=== PATIENT | male | born 1955 | race African-American/Black ===

== ENCOUNTER 2019-02-18 10:11 | Emergency (ER) | payer MEDICARE ==
[2019-02-18] MEDS ORDERED: methylPREDNISolone Sod Succ/PF 125 MG/2 ML VIAL ONE (10:38)
[2019-02-18] MEDS ORDERED: Albuterol Sulfate 2.5 mg/3 ml Neb ONE ×2 (10:50→10:51)
== END 2019-02-18 11:45 | disposition home or self-care (01) ==
LOC: NAV ERS 10:11
DX: J44.1 Chronic obstructive pulmonary disease with (acute) exacerbation (principal); F17.210 Nicotine dependence, cigarettes, uncomplicated; Z79.51 Long term (current) use of inhaled steroids
CPT/HCPCS: 93005; 94640; 94760; 96372; J2930; J7611; J7620

== ENCOUNTER 2020-01-01 13:56 | Emergency (ER) | payer MEDICARE ==
[2020-01-01] MEDS ORDERED: predniSONE 20 MG TAB ONE (14:24)
--- NOTE | 2020-01-01 14:49 | RAD ---
PORTABLE CHEST 1 VIEW: Date: 01/01/2020 Time: 1439 hours HISTORY: Shortness of breath. COPD. COMPARISON: 11/05/2014 and 12/21/2015. FINDINGS: A right-sided Port-A-Cath is seen with tip in the projection of the cavoatrial junction. The heart si ze is normal. Changes of COPD are again seen. No lobar consolidation, pneumothoraces, or pleural effu sions are identified. IMPRESSION: No acute process. POS: [facility]
[2020-01-01] MEDS ORDERED: Albuterol Sulfate 2.5 mg/3 ml Neb ONE (14:52)
== END 2020-01-01 15:11 | disposition home or self-care (01) ==
LOC: NAV ERS 13:56
DX: J44.1 Chronic obstructive pulmonary disease with (acute) exacerbation (principal); F17.210 Nicotine dependence, cigarettes, uncomplicated; Z79.51 Long term (current) use of inhaled steroids
CPT/HCPCS: 71046; 93005; 94640; J7512; J7611; J7620

== ENCOUNTER 2020-02-04 08:51 | Emergency (ER) | payer MEDICARE, OTHER ==
[2020-02-04] MEDS ORDERED: predniSONE 20 MG TAB ONE ×2 (09:14→09:17)
[2020-02-04] MEDS ORDERED: Ventolin HFA Inhaler 60 PUFF INHALER ONE (09:16)
--- NOTE | 2020-02-04 09:47 | RAD ---
CHEST 1 VIEW: Date: 02/04/2020 HISTORY: Shortness of breath without fever. Dyspnea. COMPARISON: 01/01/2020. FINDINGS: Stable bilateral hyperinflation. Heart size is normal. Right subclavian catheter and injection port. No confluent pneumonia, overt edema, or pleural effusion. IMPRESSION: Hyperinflation, but no acute intrathoracic disease. Stable findings. POS: [facility]
== END 2020-02-04 10:19 | disposition home or self-care (01) ==
LOC: NAV ERS 08:51
DX: J44.1 Chronic obstructive pulmonary disease with (acute) exacerbation (principal); F17.210 Nicotine dependence, cigarettes, uncomplicated; Z79.51 Long term (current) use of inhaled steroids; Z71.6 Tobacco abuse counseling
CPT/HCPCS: 71045; 99406; J7512

== ENCOUNTER 2020-03-09 01:39 | Emergency (ER) | payer MEDICARE, OTHER ==
[2020-03-09] MEDS ORDERED: methylPREDNISolone Sod Succ/PF 125 MG/2 ML VIAL ONE (02:19)
[2020-03-09] MEDS ORDERED: Ventolin HFA Inhaler 60 PUFF INHALER ONE (02:19)
[2020-03-09] MEDS ORDERED: Sodium Chloride 0.9% 1,000 ML ONE (02:19)
[2020-03-09 02:31] LABS: Hemoglobin 18.1 g/dL (14.0-18.0); Mean Corpuscular HGB CONC 33.1 g/dL (32.0-36.0); Mean Corpuscular Hemoglobin 29.6 pg (27.0-31.0); Mean Corpuscular Volume 89.6 fL (78.0-98.0); Mean Platelet Volume 7.8 fL (7.4-10.4); Platelet Count 183 thou/uL (130-400); RBC Distribution Width 12.1 % (11.5-14.5); White Blood Cell (WBC) Count 6.3 thou/uL (4.8-10.8)
[2020-03-09 02:32] LABS: #Basophils 0.1 thou/uL (0.0-0.2); #Eosinphils 0.5 thou/uL (0.0-0.7); #Lymphocytes 1.5 thou/uL (1.20-3.40); #Monocytes 0.9 thou/uL (0.11-0.59); #Neutrophils 3.3 thou/uL (1.40-6.50); %Basophils 1.4 % (0.0-1.0); %Eosinophils 7.4 % (0.0-10.0); %Lymphocytes 24.2 % (21.0-51.0); %Monocytes 14.7 % (0.0-10.0); %Neutrophils 52.3 % (42.0-75.0); ALT (SGPT) 24 U/L (8-55); AST (SGOT) 24 U/L (5-34); Albumin 4.2 g/dL (3.4-4.8); Alkaline Phosphatase 79 U/L (40-110); Anion Gap 16 mmol/L (10-20); BUN (Urea Nitrogen) 10 mg/dL (8.4-25.7); Calc. Creatinine Clearance 0 mL/min (70-130); Calcium 9.4 mg/dL (7.8-10.44); Carbon Dioxide 21 mmol/L (23-31); Chloride 106 mmol/L (98-107); Estimated GFR-MDRD 86; Glucose 95 mg/dL (80-115); Protein, Total 7.2 g/dL (5.8-8.1); Sodium 139 mmol/L (136-145)
[2020-03-09 02:55] LABS: Base Excess-Venous 0.2 mmol/L (-2.0 to 3.0); Bicarbonate (HCO3v) 24.6 mmol/L (22.0-28.0); CO2 Tension (PvCO2) 38.2 mmHg (40.0-50.0); Calcium, Ionized 1.16 mmol/L (See Comments:); Chloride 105 mmol/L (98-107); Hemoglobin - Calc 17.4 g/dL (14.0-18.0); Potassium 3.9 mmol/L (3.5-5.1); Sodium 140 mmol/L (138-145); T. Carbon Dioxide 25.7 mmol/L (22.0-28.0); vO2 Saturation-calc 85.8 % (60.0-85.0)
--- NOTE | 2020-03-09 07:47 | RAD ---
RADIOGRAPH CHEST 2 VIEW: DATE: 03/09/2020 HISTORY: 64-year-old male with dyspnea COMPARISON: 02/04/2020 FINDINGS: There is hyperinflation of the lungs, consistent with COPD. There is no evidence of airspace density, pulmonary edema, cardiomegaly, pleural effusion, or pneumothorax. Prominent right hilum and infrahilar opacity. Right IJ implantable vascular access port with distal tip at upper portion of rig ht atrium. No interval change. Prominent interstitial markings diffusely. IMPRESSION: 1) No acute cardiopulmonary findings. 2) emphysema.
[2020-03-10 09:57] LABS: SARS-CoV-2 MS2 Positive; SARS-CoV-2 N Gene Negative; SARS-CoV-2 S Gene Negative; SARS-CoV-2 orf1ab Negative
== END 2020-03-09 03:40 | disposition home or self-care (01) ==
LOC: NAV ERS 01:39
DX: J44.1 Chronic obstructive pulmonary disease with (acute) exacerbation (principal); Z20.828 Contact with and (suspected) exposure to other viral communicable diseases; F17.210 Nicotine dependence, cigarettes, uncomplicated; Z79.899 Other long term (current) drug therapy
CPT/HCPCS: 71046; 80053; 82330; 82435; 82803; 84132; 84295; 84484; 85014; 85025; 93005; 96374; 99285; U0003; 87635; J2930; J7050

== ENCOUNTER 2020-12-21 03:13 | Emergency (ER) | payer MEDICARE ==
[2020-12-21] MEDS ORDERED: methylPREDNISolone Sod Succ/PF 125 MG/2 ML VIAL ONE (03:45)
[2020-12-21 03:57] LABS: #Basophils 0.1 thou/uL (0.0-0.2); #Eosinphils 0.5 thou/uL (0.0-0.7); #Lymphocytes 1.8 thou/uL (1.20-3.40); #Monocytes 0.6 thou/uL (0.11-0.59); #Neutrophils 2.8 thou/uL (1.40-6.50); %Basophils 1.8 % (0.0-1.0); %Lymphocytes 30.9 % (21.0-51.0); %Monocytes 10.1 % (0.0-10.0); %Neutrophils 48.2 % (42.0-75.0); Hemoglobin 18.8 g/dL (14.0-18.0); Manual Diff?? NO; Mean Corpuscular HGB CONC 33.2 g/dL (32.0-36.0); Mean Corpuscular Hemoglobin 29.5 pg (27.0-31.0); Mean Platelet Volume 7.2 fL (7.4-10.4); Platelet Count 186 thou/uL (130-400); RBC Distribution Width 11.9 % (11.5-14.5); Red Blood Cell (RBC) Count 6.37 mill/uL (4.70-6.10); White Blood Cell (WBC) Count 5.8 thou/uL (4.8-10.8)
[2020-12-21 04:04] LABS: Chloride 105 mmol/L (98-107)
[2020-12-21 04:10] LABS: ALT (SGPT) 25 U/L (8-55); AST (SGOT) 24 U/L (5-34); Albumin 4.2 g/dL (3.4-4.8); Alkaline Phosphatase 83 U/L (40-110); Anion Gap 16 mmol/L (10-20); BUN (Urea Nitrogen) 20 mg/dL (8.4-25.7); Bilirubin, Total 0.8 mg/dL (0.2-1.2); Calc. Creatinine Clearance 0 mL/min (70-130); Calcium 9.3 mg/dL (7.8-10.44); Carbon Dioxide 21 mmol/L (23-31); Globulin 3.3 g/dL (2.4-3.5); Glucose 101 mg/dL (80-115); Potassium 4.5 mmol/L (3.5-5.1); Protein, Total 7.5 g/dL (5.8-8.1); Sodium 137 mmol/L (136-145)
--- NOTE | 2020-12-21 08:54 | RAD ---
EXAM: Portable chest PROVIDED CLINICAL HISTORY: Dyspnea COMPARISON: 03/09/2020 FINDINGS: Cardiac and mediastinal silhouette is within normal limits. No focal consolidation, pleural fluid or pneumothorax evident. The lungs are hyperinflated and hyperlucent, compatible with chronic obstructive disease. IMPRESSION: No evidence for an acute cardiopulmonary process.
[2020-12-21 17:00] LABS: SARS-CoV-2 PCR by NAA Not Detected (NotDetected)
== END 2020-12-21 04:39 | disposition home or self-care (01) ==
LOC: NAV ERS 03:13
DX: J44.1 Chronic obstructive pulmonary disease with (acute) exacerbation (principal); Z20.822 Contact with and (suspected) exposure to COVID-19; F17.210 Nicotine dependence, cigarettes, uncomplicated; Z79.899 Other long term (current) drug therapy
CPT/HCPCS: 71045; 80053; 84484; 85025; 85379; 93005; U0003; U0005; 87635; 96374; J2930; J7620

== ENCOUNTER 2023-09-07 08:09 | Emergency (ER) | payer MEDICARE ==
[2023-09-07] MEDS ORDERED: Ipratropium/Albuterol 3 ML NEB ONE (08:19)
[2023-09-07] MEDS ORDERED: methylPREDNISolone Sod Succ/PF 125 MG/2 ML VIAL ONE (08:32)
[2023-09-07 08:33] LABS: #Basophils 0.1 thou/uL (0.0-0.2); #Eosinphils 0.4 thou/uL (0.0-0.7); #Lymphocytes 1.7 thou/uL (1.20-3.40); #Monocytes 0.7 thou/uL (0.11-0.59); #Neutrophils 3.2 thou/uL (1.40-6.50); %Eosinophils 6.7 % (0.0-10.0); %Lymphocytes 28.5 % (21.0-51.0); %Monocytes 11.2 % (0.0-10.0); %Neutrophils 52.7 % (42.0-75.0); Hematocrit 54.7 % (42.0-52.0); Hemoglobin 18.1 g/dL (14.0-18.0); Mean Corpuscular HGB CONC 33.1 g/dL (32.0-36.0); Mean Corpuscular Hemoglobin 29.6 pg (27.0-31.0); Mean Corpuscular Volume 89.2 fl (78.0-98.0); Mean Platelet Volume 8.5 fL (7.4-10.4); Platelet Count 146 10x3/uL (130-400); RBC Distribution Width 12.2 % (11.5-14.5); Red Blood Cell (RBC) Count 6.13 mill/uL (4.70-6.10); White Blood Cell (WBC) Count 6.1 10x3/uL (4.8-10.8)
[2023-09-07 08:55] LABS: ALT (SGPT) 20 U/L (8-55); AST (SGOT) 15 U/L (5-34); Albumin 3.9 g/dL (3.4-4.8); Alkaline Phosphatase 62 U/L (40-110); Anion Gap 13 mmol/L (10-20); BUN (Urea Nitrogen) 17 mg/dL (8.4-25.7); Calc. Creatinine Clearance 0 mL/min (70-130); Calcium 8.9 mg/dL (7.8-10.44); Carbon Dioxide 24 mmol/L (23-31); Chloride 107 mmol/L (98-107); Estimated GFR 93; Globulin 3.1 g/dL (2.4-3.5); Glucose 121 mg/dL (80-115); Potassium 3.8 mmol/L (3.5-5.1); Sodium 140 mmol/L (136-145); Troponin I Less than 0.010 ng/mL (< 0.028)
== END 2023-09-07 09:40 | disposition home or self-care (01) ==
LOC: NAV ERS 08:09
DX: J44.1 Chronic obstructive pulmonary disease with (acute) exacerbation (principal); E78.00 Pure hypercholesterolemia, unspecified; F17.210 Nicotine dependence, cigarettes, uncomplicated; Z79.899 Other long term (current) drug therapy
CPT/HCPCS: 71045; 80053; 83880; 84484; 85025; 93005; 94760; 96374; J2930; J7620

== ENCOUNTER 2024-03-13 15:51 | Emergency (ER) | payer MEDICARE ==
[2024-03-13] MEDS ORDERED: Ipratropium/Albuterol 3 ML NEB ONE (16:36)
[2024-03-13] MEDS ORDERED: methylPREDNISolone Sod Succ/PF 125 MG/2 ML VIAL ONE (16:36)
[2024-03-13 17:31] LABS: Influenza A by NAA Not Detected (NotDetected); Influenza B by NAA Not Detected (NotDetected); SARS-CoV-2 NAA Rapid Test Not Detected (NotDetected)
== END 2024-03-13 17:47 | disposition home or self-care (01) ==
LOC: NAV ERS 15:51
DX: J44.1 Chronic obstructive pulmonary disease with (acute) exacerbation (principal); J06.9 Acute upper respiratory infection, unspecified; E78.00 Pure hypercholesterolemia, unspecified; F17.210 Nicotine dependence, cigarettes, uncomplicated; Z79.899 Other long term (current) drug therapy
CPT/HCPCS: 0240U; 71046; 94640; 96374; J2930; J7620

== ENCOUNTER 2024-03-14 13:41 | Emergency (ER) | payer MEDICARE ==
[2024-03-14] MEDS ORDERED: Ipratropium/Albuterol 3 ML NEB ONE ×2 (13:54→15:07)
[2024-03-14] MEDS ORDERED: Sodium Chloride 0.9% 1,000 ML ONE (13:54)
[2024-03-14] MEDS ORDERED: methylPREDNISolone Sod Succ/PF 125 MG/2 ML VIAL ONE (13:54)
[2024-03-14 14:21] LABS: Base Excess-Venous 0.4 mmol/L (-2.0 to 3.0); Bicarbonate (HCO3v) 24.6 mmol/L (22.0-28.0); Calcium, Ionized 1.18 mmol/L (1.15-1.33); Chloride 109 mmol/L (98-107); Hemoglobin - Calc 18.7 g/dL (14.0-18.0); Potassium 3.9 mmol/L (3.5-5.1); Sodium 145 mmol/L (138-145); T. Carbon Dioxide 25.8 mmol/L (22.0-28.0); vO2 Saturation-calc 90.8 % (60.0-85.0)
[2024-03-14 14:25] LABS: Hematocrit 54.3 % (42.0-52.0); Hemoglobin 17.3 g/dL (14.0-18.0); Manual Diff?? NO; Mean Corpuscular HGB CONC 31.9 g/dL (32.0-36.0); Mean Corpuscular Hemoglobin 27.9 pg (27.0-31.0); Mean Corpuscular Volume 87.4 fl (78.0-98.0); Mean Platelet Volume 8.4 fL (7.4-10.4); Platelet Count 159 10x3/uL (130-400); RBC Distribution Width 12.8 % (11.5-14.5); Red Blood Cell (RBC) Count 6.21 mill/uL (4.70-6.10); White Blood Cell (WBC) Count 12.6 10x3/uL (4.8-10.8)
[2024-03-14 14:26] LABS: %Lymphocytes 12.4 % (21.0-51.0); %Monocytes 6.8 % (0.0-10.0); %Neutrophils 80.3 % (42.0-75.0)
[2024-03-14 14:27] LABS: #Basophils 0.1 thou/uL (0.0-0.2); #Lymphocytes 1.6 thou/uL (1.20-3.40); #Monocytes 0.9 thou/uL (0.11-0.59); %Basophils 0.4 % (0.0-1.0)
[2024-03-14 14:33] LABS: ALT (SGPT) 25 U/L (8-55); AST (SGOT) 17 U/L (5-34); Albumin 4.3 g/dL (3.4-4.8); Alkaline Phosphatase 78 U/L (40-110); Anion Gap 16 mmol/L (10-20); BUN (Urea Nitrogen) 18 mg/dL (8.4-25.7); Bilirubin, Total 0.9 mg/dL (0.2-1.2); Calc. Creatinine Clearance 0 mL/min (70-130); Calcium 9.6 mg/dL (7.8-10.44); Carbon Dioxide 21 mmol/L (23-31); Chloride 109 mmol/L (98-107); Estimated GFR 83; Globulin 3.2 g/dL (2.4-3.5); Glucose 105 mg/dL (80-115); Protein, Total 7.5 g/dL (5.8-8.1); Sodium 142 mmol/L (136-145)
[2024-03-14] MEDS ORDERED: Azithromycin 500 MG VIAL ONE (15:07)
[2024-03-14] MEDS ORDERED: Sodium Chloride 0.9% 250 ML 250 ML ONE (15:07)
[2024-03-14 16:23] LABS: Bilirubin Negative (Negative); Blood, Urine Negative (Negative); Clarity Clear (Clear); Glucose, Urine (Dipstick) Negative (Negative); Ketone, Urine Trace mg/dL (Negative); Leukocyte Negative (Negative); Nitrite Negative (Negative); Protein, Urine (Dipstick) Negative (Neg-Trace); pH, Urine 5.5 (5.0-9.0)
[2024-03-14 16:29] LABS: CAUTI Indications for Culture Pelvic or flank pain; Specific Gravity, Urine 1.022 (1.002-1.036)
[2024-03-14 16:30] LABS: Urine Culture Reflex No No
[2024-03-14 16:32] LABS: Transitional Epithelial 0-3 HPF (None Seen)
== END 2024-03-14 16:30 | disposition home or self-care (01) ==
LOC: NAV ERS 13:41
DX: J44.1 Chronic obstructive pulmonary disease with (acute) exacerbation (principal); E78.00 Pure hypercholesterolemia, unspecified; F17.210 Nicotine dependence, cigarettes, uncomplicated; Z79.899 Other long term (current) drug therapy
CPT/HCPCS: 80053; 81001; 82330; 82435; 82803; 83605; 84132; 84295; 85014; 85025; 87040; 87070; 87205; 93005; 94640 ×2; 94760; J0456; 96361; 96365; 96375; J2930; J7050; J7620

== ENCOUNTER 2024-07-21 04:23 | Emergency (ER) | payer MEDICARE ==
[2024-07-21] MEDS ORDERED: methylPREDNISolone Sod Succ/PF 125 MG/2 ML VIAL ONE (04:39)
[2024-07-21] MEDS ORDERED: Ipratropium/Albuterol 3 ML NEB ONE (04:39)
[2024-07-21 04:50] LABS: #Basophils 0.1 thou/uL (0.0-0.2); #Eosinphils 0.2 thou/uL (0.0-0.7); #Lymphocytes 1.7 thou/uL (1.20-3.40); #Monocytes 0.5 thou/uL (0.11-0.59); #Neutrophils 3.1 thou/uL (1.40-6.50); %Basophils 1.4 % (0.0-1.0); %Eosinophils 3.9 % (0.0-10.0); %Lymphocytes 30.4 % (21.0-51.0); %Monocytes 9.4 % (0.0-10.0); %Neutrophils 54.8 % (42.0-75.0); Hematocrit 51.8 % (42.0-52.0); Hemoglobin 17.9 g/dL (14.0-18.0); Mean Corpuscular HGB CONC 34.5 g/dL (32.0-36.0); Mean Corpuscular Hemoglobin 29.4 pg (27.0-31.0); Mean Corpuscular Volume 85.2 fl (78.0-98.0); Mean Platelet Volume 7.9 fL (7.4-10.4); Platelet Count 150 10x3/uL (130-400); RBC Distribution Width 12.1 % (11.5-14.5); Red Blood Cell (RBC) Count 6.08 mill/uL (4.70-6.10); White Blood Cell (WBC) Count 5.6 10x3/uL (4.8-10.8)
[2024-07-21 05:01] LABS: ALT (SGPT) 29 U/L (8-55); AST (SGOT) 18 U/L (5-34); Albumin 3.5 g/dL (3.4-4.8); Alkaline Phosphatase 107 U/L (40-110); Anion Gap 15 mmol/L (10-20); BUN (Urea Nitrogen) 13 mg/dL (8.4-25.7); Bilirubin, Total 0.6 mg/dL (0.2-1.2); Calc. Creatinine Clearance 0 mL/min (70-130); Calcium 9.3 mg/dL (7.8-10.44); Carbon Dioxide 21 mmol/L (23-31); Chloride 108 mmol/L (98-107); Estimated GFR 86; Globulin 3.7 g/dL (2.4-3.5); Glucose 118 mg/dL (83-110); Potassium 3.8 mmol/L (3.5-5.1); Protein, Total 7.2 g/dL (5.8-8.1); Sodium 140 mmol/L (136-145)
[2024-07-21 05:02] LABS: Troponin I 0.017 ng/mL (< 0.028)
[2024-07-21 05:14] LABS: SARS-CoV-2 E Target Positive; SARS-CoV-2 N2 Target Negative; SARS-CoV-2 NAA Rapid Test DETECTED (NotDetected); SARS-CoV-2 RdRP gene Negative
== END 2024-07-21 05:53 | disposition home or self-care (01) ==
LOC: NAV ERS 04:23
DX: U07.1 COVID-19 (principal); J44.1 Chronic obstructive pulmonary disease with (acute) exacerbation; F17.210 Nicotine dependence, cigarettes, uncomplicated
CPT/HCPCS: 71046; 80053; 83880; 84484; 85025; 87804; 93005; 94640; 96374; J2919; J7620; U0002

== ENCOUNTER 2024-09-16 14:59 | Emergency (ER) | payer MEDICARE ==
[~2024-09-16 14:59] MED LIST: Iopamidol 370 76% 100 ML VIAL ONE
[2024-09-16] MEDS ORDERED: Ipratropium/Albuterol 3 ML NEB ONE ×2 (15:04→15:51)
[2024-09-16] MEDS ORDERED: methylPREDNISolone Sod Succ/PF 125 MG/2 ML VIAL ONE (15:15)
[2024-09-16 15:31] LABS: #Basophils 0.1 thou/uL (0.0-0.2); #Eosinophils 0.4 thou/uL (0.0-0.7); #Lymphocytes 2.2 thou/uL (1.20-3.40); #Monocytes 0.8 thou/uL (0.11-0.59); #Neutrophils 3.2 thou/uL (1.40-6.50); %Basophils 1.7 % (0.0-1.0); %Eosinophils 5.9 % (0.0-10.0); %Lymphocytes 32.8 % (21.0-51.0); %Monocytes 11.7 % (0.0-10.0); %Neutrophils 47.9 % (42.0-75.0); Hematocrit 56.7 % (42.0-52.0); Hemoglobin 18.9 g/dL (14.0-18.0); Mean Corpuscular HGB CONC 33.3 g/dL (32.0-36.0); Mean Corpuscular Hemoglobin 28.2 pg (27.0-31.0); Mean Corpuscular Volume 84.7 fl (78.0-98.0); Mean Platelet Volume 7.6 fL (7.4-10.4); Platelet Count 156 10x3/uL (130-400); White Blood Cell (WBC) Count 6.8 10x3/uL (4.8-10.8)
[2024-09-16 15:44] LABS: ALT (SGPT) 29 U/L (8-55); AST (SGOT) 27 U/L (5-34); Albumin 3.8 g/dL (3.4-4.8); Alkaline Phosphatase 84 U/L (40-110); Anion Gap 14 mmol/L (10-20); BUN (Urea Nitrogen) 16 mg/dL (8.4-25.7); Bilirubin, Total 0.5 mg/dL (0.2-1.2); Calc. Creatinine Clearance 0 mL/min (70-130); Calcium 9.6 mg/dL (7.8-10.44); Carbon Dioxide 20 mmol/L (23-31); Chloride 110 mmol/L (98-107); Estimated GFR 65; Globulin 3.6 g/dL (2.4-3.5); Glucose 104 mg/dL (83-110); Potassium 4.1 mmol/L (3.5-5.1); Protein, Total 7.4 g/dL (5.8-8.1); Sodium 140 mmol/L (136-145)
[2024-09-16 16:08] LABS: Troponin I 0.018 ng/mL (< 0.028)
[2024-09-16 16:24] LABS: Base Excess-Venous -0.1 mmol/L (-2.0 to 3.0); Bicarbonate (HCO3v) 24.3 mmol/L (22.0-28.0); Calcium, Ionized 1.15 mmol/L (1.15-1.33); Chloride 109 mmol/L (98-107); Hemoglobin - Calc 17.9 g/dL (14.0-18.0); Sodium 143 mmol/L (138-145); T. Carbon Dioxide 25.4 mmol/L (22.0-28.0); vO2 Saturation-calc 98.4 % (60.0-85.0)
[2024-09-16] MEDS ORDERED: Apixaban 5 MG TAB ONE (18:19)
== END 2024-09-16 18:30 | disposition home or self-care (01) ==
LOC: NAV ERS 14:59
DX: J44.1 Chronic obstructive pulmonary disease with (acute) exacerbation (principal); I26.93 Single subsegmental thrombotic pulmonary embolism without acute cor pulmonale; R91.1 Solitary pulmonary nodule; E78.00 Pure hypercholesterolemia, unspecified; F17.210 Nicotine dependence, cigarettes, uncomplicated; Z79.899 Other long term (current) drug therapy
CPT/HCPCS: 71045; 71275; 80053; 81241; 82330; 82435; 82803; 84132; 84295; 84484; 85014; 85025; 85046; 85300; 85303; 85306; 85379; 87428; 94640 ×2; 96374; 99285; J2919; Q9967; 36415; J7620

== ENCOUNTER 2024-12-08 16:05 | Emergency (ER) | payer MEDICARE, SELFPAY ==
[2024-12-08] MEDS ORDERED: methylPREDNISolone Sod Succ/PF 125 MG/2 ML VIAL ONE (16:10)
[2024-12-08] MEDS ORDERED: Ipratropium/Albuterol 3 ML NEB ONE ×3 (16:10→17:30)
[2024-12-08 16:42] LABS: #Basophils 0.1 thou/uL (0.0-0.2); #Eosinophils 0.5 thou/uL (0.0-0.7); #Lymphocytes 1.2 thou/uL (1.20-3.40); #Monocytes 0.8 thou/uL (0.11-0.59); #Neutrophils 3.8 thou/uL (1.40-6.50); %Basophils 1.1 % (0.0-1.0); %Eosinophils 7.7 % (0.0-10.0); %Lymphocytes 19.2 % (21.0-51.0); %Monocytes 13.2 % (0.0-10.0); %Neutrophils 58.7 % (42.0-75.0); Hematocrit 56.4 % (42.0-52.0); Hemoglobin 18.3 g/dL (14.0-18.0); Mean Corpuscular HGB CONC 32.4 g/dL (32.0-36.0); Mean Corpuscular Hemoglobin 26.6 pg (27.0-31.0); Mean Corpuscular Volume 82.1 fl (78.0-98.0); Mean Platelet Volume 8.3 fL (7.4-10.4); Platelet Count 155 10x3/uL (130-400); RBC Distribution Width 12.2 % (11.5-14.5); Red Blood Cell (RBC) Count 6.88 mill/uL (4.70-6.10); White Blood Cell (WBC) Count 6.4 10x3/uL (4.8-10.8)
[2024-12-08 16:57] LABS: ALT (SGPT) 31 U/L (Less than 45); AST (SGOT) 27 U/L (11-34); Albumin 4.5 g/dL (3.1-4.5); Alkaline Phosphatase 75 U/L (40-110); Anion Gap 15 mmol/L (10-20); BUN (Urea Nitrogen) 15 mg/dL (8.4-25.7); Bilirubin, Total 0.6 mg/dL (0.3-1.2); Calc. Creatinine Clearance 0 mL/min (70-130); Calcium 10.3 mg/dL (7.8-10.44); Carbon Dioxide 23 mmol/L (23-31); Chloride 106 mmol/L (98-107); Estimated GFR 92; Globulin 3.6 g/dL (2.4-3.5); Glucose 87 mg/dL (83-110); Potassium 4.3 mmol/L (3.5-5.1); Protein, Total 8.1 g/dL (5.8-8.1); Sodium 140 mmol/L (136-145)
[2024-12-08 16:59] LABS: Troponin I Less than 0.010 ng/mL (< 0.028)
== END 2024-12-08 22:01 | disposition short-term general hospital (02) ==
LOC: NAV ERS 16:05
DX: J44.1 Chronic obstructive pulmonary disease with (acute) exacerbation (principal); E78.00 Pure hypercholesterolemia, unspecified; F17.210 Nicotine dependence, cigarettes, uncomplicated; Z79.01 Long term (current) use of anticoagulants; Z79.51 Long term (current) use of inhaled steroids; Z79.899 Other long term (current) drug therapy
CPT/HCPCS: 71045; 80053; 83880; 84484; 85025; 87428; 93005; 94760; 96374; J2919; J7620

== ENCOUNTER 2025-09-08 07:47 | Emergency (ER) | payer MEDICARE, OTHER ==
[2025-09-08 08:16] LABS: #Basophils 0.2 thou/uL (0.0-0.2); #Eosinophils 0.3 thou/uL (0.0-0.7); #Lymphocytes 2.3 thou/uL (1.20-3.40); #Monocytes 0.8 thou/uL (0.11-0.59); #Neutrophils 2.7 thou/uL (1.40-6.50); %Basophils 2.8 % (0.0-1.0); %Eosinophils 4.2 % (0.0-10.0); %Lymphocytes 37.2 % (21.0-51.0); %Monocytes 12.9 % (0.0-10.0); %Neutrophils 42.9 % (42.0-75.0); Hematocrit 56.6 % (42.0-52.0); Hemoglobin 18.7 g/dL (14.0-18.0); Mean Corpuscular Hemoglobin 28.2 pg (27.0-31.0); Mean Corpuscular Volume 85.3 fl (78.0-98.0); Platelet Count 169 10x3/uL (130-400); Red Blood Cell (RBC) Count 6.63 mill/uL (4.70-6.10); White Blood Cell (WBC) Count 6.3 10x3/uL (4.8-10.8)
[2025-09-08] MEDS ORDERED: Aspirin Chewable 81 MG TAB ONE (08:30)
[2025-09-08 08:33] LABS: ALT (SGPT) 24 U/L (Less than 45); AST (SGOT) 23 U/L (11-34); Albumin 4.1 g/dL (3.1-4.5); Alkaline Phosphatase 72 U/L (40-110); Anion Gap 13 mmol/L (10-20); BUN (Urea Nitrogen) 13 mg/dL (8.4-25.7); Bilirubin, Total 1.0 mg/dL (0.3-1.2); Calc. Creatinine Clearance 0 mL/min (70-130); Calcium 9.2 mg/dL (7.8-10.44); Carbon Dioxide 22 mmol/L (23-31); Chloride 107 mmol/L (98-107); Globulin 3.2 g/dL (2.4-3.5); Glucose 90 mg/dL (83-110); Potassium 4.2 mmol/L (3.5-5.1); Sodium 138 mmol/L (136-145)
[2025-09-08 08:36] LABS: Troponin I Less than 0.010 ng/mL (< 0.028)
== END 2025-09-08 09:38 | disposition home or self-care (01) ==
LOC: NAV ERS 07:47
DX: J44.1 Chronic obstructive pulmonary disease with (acute) exacerbation (principal)
CPT/HCPCS: 71045; 80053; 83605; 83880; 84484; 85025; 93005; 94640 ×2; J2919; 96374

== ENCOUNTER 2025-10-18 13:39 | Emergency (ER) | payer OTHER ==
[2025-10-18 14:41] LABS: ALT (SGPT) 19 U/L (Less than 45); AST (SGOT) 23 U/L (11-34); Albumin 3.7 g/dL (3.1-4.5); Alkaline Phosphatase 79 U/L (40-110); Anion Gap 14 mmol/L (10-20); BUN (Urea Nitrogen) 13 mg/dL (8.4-25.7); Bilirubin, Total 0.6 mg/dL (0.3-1.2); Calc. Creatinine Clearance 0 mL/min (70-130); Calcium 9.0 mg/dL (7.8-10.44); Carbon Dioxide 22 mmol/L (23-31); Chloride 107 mmol/L (98-107); Globulin 3.5 g/dL (2.4-3.5); Glucose 98 mg/dL (83-110); Potassium 3.8 mmol/L (3.5-5.1); Sodium 139 mmol/L (136-145)
[2025-10-18 14:53] LABS: Hematocrit 51.7 % (42.0-52.0); Hemoglobin 17.9 g/dL (14.0-18.0); Mean Corpuscular Hemoglobin 27.8 pg (27.0-31.0); Mean Corpuscular Volume 80.6 fl (78.0-98.0); Platelet Count 130 10x3/uL (130-400); Red Blood Cell (RBC) Count 6.42 mill/uL (4.70-6.10); White Blood Cell (WBC) Count 6.6 10x3/uL (4.8-10.8)
[2025-10-18 14:56] LABS: Platelet Adequacy Comment Appears Adequate
[2025-10-18] MEDS ORDERED: Azithromycin 250 MG TAB ONE (15:49)
== END 2025-10-18 15:50 | disposition home or self-care (01) ==
LOC: NAV ERS 13:39
DX: J44.1 Chronic obstructive pulmonary disease with (acute) exacerbation (principal); E78.00 Pure hypercholesterolemia, unspecified; Z79.899 Other long term (current) drug therapy
CPT/HCPCS: 71045; 80053; 85025; 87428; J2919; 96374